=== PATIENT | female | born 1935 | race Caucasian/White ===

== ENCOUNTER 2019-04-10 10:08 | Inpatient (IN) | payer MEDICARE, OTHER ==
[2019-04-10] MEDS ORDERED: IPRATROPIUM/ALBUTEROL SULFATE 3 ML AMPUL.NEB NEB ONE ×2 (10:21→10:31)
[2019-04-10] MEDS ORDERED: ASPIRIN 81 MG CHEW TAB PO ONE (10:28)
[2019-04-10 10:33] LABS: BASOPHILS % 0.4 % (0.0-1.5); NEUTROPHILS # 7.3 # k/uL (1.4-7.7)
[2019-04-10 10:47] LABS: eGFR (Non-African) > 60
--- NOTE | 2019-04-10 11:00 | Diagnostic Imaging Report ---
PATIENT MR#: [id number] PATIENT PATIENT NAME: SAUD FINCH DATE OF : 1935 REFERRING PHYSICIAN: Kev Fulton EXAM DATE: 04/10/2019 ACCESSION NUMBER: [id number] EXAM DESCRIPTION: CHEST 1VIEW EXAMINATION: Portable chest AP COMPARISON: None provided. HISTORY: ORDER STATES CHEST PRESSURE, DIFF BREATHING PT STATES CHEST HURTING, SOB FOR X3-4 DAYS, HX PACEMAKER X8 YRS FINDINGS: Heart is enlarged. Mild pulmonary vascular congestion and small bilateral pleural effusions. No pneum othorax. Single lead pacemaker noted. IMPRESSION: Congestive heart failure Read by: Dr. Aaron Smith Transcribed by: Transcribed Date: Electronically signed by: Dr. Aaron Smith Date signed: 04/10/2019 10:59:49 AM
--- NOTE | 2019-04-10 11:04 | ED Physician Documentation ---
Chest Pain - HISTORIAN Historian: patient, other (family) - HPI Stated Complaint: chest pressure - PAST HX Allergies/Adverse Reactions: Allergies Allergy/AdvReac Type Severity Reaction Status Date / Time No Known Allergies Allergy Unverified 04/10/19 10:41 Home Medications: Ambulatory Orders Medication Instructions Recorded Diltiazem HCl [Diltiazem 24Hr ER] 240 mg PO QDAY 04/10/19 Fluticasone/Umeclidin/Vilanter 04/10/19 [Trelegy Ellipta 100-62.5-25] Fluticasone/Umeclidin/Vilanter BID 04/10/19 [Trelegy Ellipta 100-62.5-25] Furosemide 20 mg PO QDAY 04/10/19 Metoprolol Tartrate [Lopressor] 50 mg pe PO BID 04/10/19 NK 04/10/19 Omeprazole 20 mg PO QDAY 04/10/19 Potassium Chloride 10 meq PO QDAY 04/10/19 Pravastatin Sodium [Pravachol] 40 mg PO QDAY 04/10/19 Warfarin Sodium [Coumadin] mg PO 04/10/19 Zolpidem Tartrate [Ambien] 5 mg PO HS 04/10/19 - VITAL SIGNS Vital Signs: Vital Signs Temp Pulse Resp BP Pulse Ox 98.4 F 78 24 142/80 92 04/10/19 10:08 04/10/19 10:59 04/10/19 10:08 04/10/19 10:08 04/10/19 10:59 ED Results Lab/Radiology - Lab Results Lab Results: Lab Results 04/10/19 04/10/19 04/10/19 10:33 10:33 10:33 WBC 9.60 K/ul K/ul (4.00-12.00) RBC 4.09 M/ul M/ul (3.90-5.20) Hgb 12.5 g/dL g/dL (11.5-16.0) Hct 38.0 % % (34.5-46.5) MCV 93.0 fl fl (80.0-100.0) MCH 30.5 pg pg (28.0-34.0) MCHC 32.8 g/dL g/dL (30.0-36.0) RDW 13.5 % % (11.3-14.3) Plt Count 203 K/mm3 K/mm3 (130-400) Neut % (Auto) 76.7 % % (39.0-79.0) Lymph % (Auto) 13.4 % L % (16.0-50.0) [place] % (Auto) 7.4 % % (0.0-11.0) Eos % (Auto) 2.1 % % (0.0-6.8) Baso % (Auto) 0.4 % % (0.0-1.5) Neut # (Auto) 7.3 # k/uL # k/uL (1.4-7.7) Lymph # (Auto) 1.3 # k/uL # k/uL (0.6-4.0) [place] # (Auto) 0.7 # k/uL # k/uL (0.0-0.9) Eos # (Auto) 0.2 # k/uL # k/uL (0.0-0.6) Baso # (Auto) 0.0 # k/uL # k/uL (0.0-0.5) PT 40.7 Seconds H Seconds (8.8-11.9) INR 3.96 H (0.80-1.10) APTT 46.2 Seconds H Seconds (24.7-37.8) Sodium 137 mmol/L mmol/L (137-145) Potassium 4.0 mmol/L mmol/L (3.5-5.1) Chloride 100 mmol/L mmol/L (98-107) Carbon Dioxide 27 mmol/L mmol/L (22-30) Anion Gap 14.0 BUN 12 mg/dL mg/dL (7-17) Creatinine 0.69 mg/dL mg/dL (0.52-1.04) Est GFR ( Amer) > 60 (60 - ) Est GFR (Non-Af Amer) > 60 (60 - ) Glucose 117 mg/dL H mg/dL (74-106) Calcium 9.0 mg/dL mg/dL (8.4-10.2) Total Bilirubin 1.6 mg/dL H mg/dL (0.2-1.3) AST 48 U/L H U/L (15-46) ALT 22 U/L U/L (0-35) Alkaline Phosphatase 109 U/L U/L (38-126) Creatine Kinase 134 U/L U/L (30-135) CK-MB (CK-2) 1.2 ng/mL ng/mL (0.0-5.6) Troponin I < 0.012 ng/mL L ng/mL (0.012-0.034) NT-Pro-B Natriuret Pep 4790.5 pg/mL H pg/mL (15.0-450.0) Total Protein 7.9 g/dL g/dL (6.3-8.2) Albumin 4.3 g/dL g/dL (3.5-5.0) - Orders Orders: ED Orders Category Date Time Status Continuous EKG monitoring Q30M Care 04/10/19 10:29 Active Continuous Pulse Oximetry Q30M Care 04/10/19 10:[address] IV Lock 1T Care 04/10/19 10:29 Active CHEST 1VIEW [RAD] Stat Exams 04/10/19 Completed CBC/PLATELET/DIFF Stat Lab 04/10/19 10:33 Completed CKMB Stat Lab 04/10/19 10:33 Completed CMP Stat Lab 04/10/19 10:33 Completed CREATINE KINASE Stat Lab 04/10/19 10:33 Completed NT BNP Stat Lab 04/10/19 10:33 Completed PT-INR Stat Lab 04/10/19 10:33 Completed PTT Stat Lab 04/10/19 10:33 Completed TROPONIN I Stat Lab 04/10/19 10:33 Completed Aspirin [Toña] Med 04/10/19 10:28 Discontinued 324 mg PO NOW ONE Ipratropium/Albuterol Sulfate [Duoneb] Med 04/10/19 10:21 Discontinued 3 ml NEB .STK-MED ONE Ipratropium/Albuterol Sulfate [Duoneb] Med 04/10/19 10:31 Discontinued 3 ml NEB NOW ONE Oxygen Daily Oxygen 04/10/19 10:30 Ordered EKG WITH COMPARISON Stat Ther 04/10/19 10:29 Ordered
--- NOTE | 2019-04-10 12:54 | History and Physical Report ---
History of Present Illnes - History of Present Illness Reason for Visit: dyspnea History of Present Illness: 83yo female who develoed some increse difficulties with breathing for one week. She has had a mild productive cough of yellow phlegm, no blood noted. Has been having some mild chest pain, last for 1 minute or less, no precipitating factor noted. Has had some previous chest pain but has not had any work-up done. Saw Dr Martínez last week and was felt to be doing well. Patient has history of atrial fibrillation, no history of CHF. Patient denies any tachycardia bradycardia syncopal new syncopal episodes. Legs have been swelling some. Has been getting SOB with laying flat or walking across a room. Has been wheezing some. patient does have a history of COPD. Patient states as far she knows it has been doing well. Patient subsequently came to the ED today for evaluation. Patient was noted to be 86 to 88% SaO2 on room air. Patient BNP was elevated. Chest x-ray was consistent with congestive heart failure. Patient was subsequently admitted to the hospital for further care and evaluation. - Past Medical History Cardiac: AFIB. denies: CHF, HTN Pulmonary: COPD Gastrointestinal: Constipation Heme/Onc: denies: Anemia NOS Psych: denies: Anxiety Rheumatologic: denies: Rheumatoid arthritis - Past Surgical History Past Surgical History: Cholecystectomy, Other (pacemaker placement) - Past Family History Mother Family History: (92, old age) Father Family History: CAD, (62yo) Brother 2 Family History: CAD, DM, Brother 3 Family History: ( COPD) Brother 4 Family History: CAD, Sister 1 Family History: (Alcoholic, liver cirrhosis) Sister 2 Family History: Sister 3 Family History: - Past Social History Smoke: Quit (3o years ago) Alcohol: None Drugs: None Lives: Friends Domestic Violence: Negative - Health Maintenance Health Maintenance: Influenza Vaccine, Pneumococcal Vaccine Influenza Vaccine: Current for this Influenza Season Pneumonia Vaccine: Yes - Unable to Obtain History Unable to Obtain: No Review of Systems - Review of Systems Constitutional: negative: Fever, Chills Eyes: negative: pain, vision change ENT: negative: Ear Pain, Ear Discharge, Nose Pain, Nose Discharge, Nose Congestion Respiratory: Cough, Shortness of Breath, SOB with Excertion, Sputum, Wheezing. negative: Hemoptysis, Pleuritic Pain Cardiovascular: Chest Pain, Orthopnea, Edema. negative: Palpitations, Paroxysmal Noc. Dyspnea, Light Headedness Gastrointestinal: Nausea, Diarrhea, Constipation. negative: Vomiting, Melena, Hematochezia Genitourinary: Dysuria, Frequency (improved) Musculoskeletal: Back Pain. negative: Neck Pain, Shoulder Pain Skin: negative: Rash Neurological: negative: Numbness, Change in Speech, Seizures - Medications/Allergies Allergies/Adverse Reactions: Allergies Allergy/AdvReac Type Severity Reaction Status Date / Time No Known Allergies Allergy Unverified 04/10/19 10:41 Home Medications: Home Medications Diltiazem HCl [Diltiazem 24Hr ER] 240 mg PO QDAY 04/10/19 Fluticasone/Umeclidin/Vilanter [Trelegy Ellipta 100-62.5-25] BID 04/10/19 Furosemide 20 mg PO QDAY 04/10/19 Metoprolol Tartrate [Lopressor] 50 mg pe PO BID 04/10/19 Omeprazole 20 mg PO QDAY 04/10/19 Potassium Chloride 10 meq PO QDAY 04/10/19 Pravastatin Sodium [Pravachol] 40 mg PO QDAY 04/10/19 Warfarin Sodium [Coumadin] 7.5 mg PO [id number] 04/10/19 Warfarin Sodium [Coumadin] 10 mg PO M1800 04/10/19 Zolpidem Tartrate [Ambien] 5 mg PO HS 04/10/19 Current Inpatient Medications: Current Inpatient Medications Diltiazem HCl (Cardizem Cd) 240 mg PO QDAY [facility] Stop: 05/11/19 08:59 Furosemide (Lasix) 40 mg IVP 714 KERI Stop: 05/10/19 13:59 Metoprolol Tartrate (Lopressor) mg PO BID KERI Stop: 05/10/19 20:59 Miscellaneous (Pravastatin Sodium [Pravachol]) 40 mg PO QDAY KERI Stop: 05/11/19 08:59 Miscellaneous (Warfarin Sodium [Coumadin]) 7.5 mg PO [id number] [facility] Stop: 05/11/19 17:59 Pantoprazole Sodium (Protonix) 40 mg PO 0700 KERI Stop: 05/11/19 06:59 Potassium Chloride (Klor-Con 10) 10 meq PO QDAY [facility] Stop: 05/11/19 08:59 Warfarin Sodium (Coumadin) 10 mg PO M1800 [facility] Stop: 05/13/19 17:59 Zolpidem Tartrate (Ambien) 5 mg PO HS [facility] Stop: 05/10/19 20:59 Exam - Exam Vital Signs: Vital Signs (72 hours) 04/10/19 04/10/19 04/10/19 10:08 10:10 10:29 Temperature 98.4 F Pulse Rate 74 Pulse Rate [ 80 Pulse ox] Respiratory 24 Rate Blood Pressure 142/80 [Left Arm] O2 Sat by Pulse 88 L 94 92 Oximetry 04/10/19 10:59 Temperature Pulse Rate 78 Pulse Rate [ Pulse ox] Respiratory Rate Blood Pressure [Left Arm] O2 Sat by Pulse 92 Oximetry General: Alert, Oriented to Person, Cooperative, No acute distress. No: Oriented to Place, Oriented to Time HEENT: Atraumatic, PERRLA, EOMI, Mouth Mucous membr. moist/[place], Nose Mucous membr. moist/[place] Neck: Normal Range of Motion. No: Lymphadenopathy Carotids: WNL Thyroid: WNL Lungs: Clear to auscultation, Normal air movement, Speaks full Sentences Cardiovascular: Normal S1, Normal S2, No murmurs, Irregularly Irregular Abdomen: Normal bowel sounds, Soft, No tenderness, No hepatospenomegaly, No m asses Integumentary: Normal, [place], Warm, Dry Extremities: No clubbing, No cyanosis, No edema, Normal pulses, No tenderness/swelling Neurological: Normal gait, Normal speech, Strength Equal Bilat, Normal tone, Sensation intact, Cranial nerves 3-12 NL, Reflexes 2+ Psych/Mental Status: Mental status NL, Mood NL, Appropriate Affect, Other (some cognitive impairment). No: Intact Judgment - Laboratory Results Laboratory Results: Laboratory Results 04/10/19 04/10/19 04/10/19 10:33 10:33 10:33 WBC 9.60 RBC 4.09 Hgb 12.5 Hct 38.0 MCV 93.0 MCH 30.5 MCHC 32.8 RDW 13.5 Plt Count 203 Neut % (Auto) 76.7 Lymph % (Auto) 13.4 L [place] % (Auto) 7.4 Eos % (Auto) 2.1 Baso % (Auto) 0.4 Neut # (Auto) 7.3 Lymph # (Auto) 1.3 [place] # (Auto) 0.7 Eos # (Auto) 0.2 Baso # (Auto) 0.0 PT 40.7 H INR 3.96 H APTT 46.2 H Sodium 137 Potassium 4.0 Chloride 100 Carbon Dioxide 27 Anion Gap 14.0 BUN 12 Creatinine 0.69 Est GFR ( Amer) > 60 Est GFR (Non-Af Amer) > 60 Glucose 117 H Calcium 9.0 Total Bilirubin 1.6 H AST 48 H ALT 22 Alkaline Phosphatase 109 Creatine Kinase 134 CK-MB (CK-2) 1.2 Troponin I < 0.012 L NT-Pro-B Natriuret Pep 4790.5 H Total Protein 7.9 Albumin 4.3 Assessment/Plan - Assessment/Plan (1) CHF (congestive heart failure) Status: Acute Current Visit: Yes Plan: Patient will be started on IV Lasix patient electrolyte will be monitored. Patient weight will be monitored daily. Will plan an echocardiogram in the future. (2) COPD (chronic obstructive pulmonary disease) Status: Chronic Current Visit: Yes Assessment: Patient will be continued on present home medication. (3) Atrial fibrillation Status: Chronic Current Visit: Yes Assessment: We will continue anticoagulation therapy with warfarin. Patient INR is superior therapeutic. Coumadin will be held today and will recheck INR in the a.m. (4) Dementia Status: Chronic Current Visit: Yes Qualifiers: Alzheimer's disease onset: late-onset Dementia behavioral disturbance: without behavioral disturbance VTE Assessment - RISK FACTOR SCORE VTE RISK FACTOR SCORES: AGE OVER 60 YEARS, ANTICIPATED BED CONFINEMENT OR IMMOBILIZATION > 24 HOURS, CONGESTIVE HEART FAILURE OR MYOCARDIAL INFARCTION - RISK VTE HIGH RISK: SCORE OF 3-4 (RISK PROXIMAL DVT 4-8%) PROPHYLAXIS NEEDED (patient is currently on anticoagulation therapy with warfarin.)
[2019-04-10 13:21] VITALS: BMI 27.4
[2019-04-10] MEDS: FUROSEMIDE 40 MG/4 ML VIAL IVP SCH (14:16)
[2019-04-10] MEDS ORDERED: WARFARIN SODIUM 7.5 MG PO SCH (18:00)
[2019-04-10] MEDS: WARFARIN SODIUM 2.5 MG TABLET PO SCH (18:48)
[2019-04-10] MEDS: METOPROLOL TARTRATE 50 MG TABLET PO SCH (20:25)
[2019-04-10] MEDS: ZOLPIDEM TARTRATE 5 MG TABLET PO SCH (20:25)
[2019-04-10] MEDS: FLUTICASONE/SALMETEROL 250-50 INHALER IH SCH (20:26)
[2019-04-10] MEDS: SODIUM CHLORIDE 0.9 % (FLUSH) 10 ML DISP.SYRIN IV SCH (20:29)
[2019-04-11] MEDS: FUROSEMIDE 40 MG/4 ML VIAL IVP SCH ×2 (05:43→13:59)
[2019-04-11] MEDS: PANTOPRAZOLE SODIUM 40 MG TABLET.DR PO SCH (05:49)
[2019-04-11] MEDS: SODIUM CHLORIDE 0.9 % (FLUSH) 10 ML DISP.SYRIN IV SCH ×2 (08:26→21:43)
[2019-04-11] MEDS: FLUTICASONE/SALMETEROL 250-50 INHALER IH SCH ×2 (08:28→21:46)
[2019-04-11] MEDS: METOPROLOL TARTRATE 50 MG TABLET PO SCH ×2 (08:30→21:43)
[2019-04-11] MEDS: POTASSIUM CHLORIDE 10 MEQ TABLET.ER PO SCH (08:30)
[2019-04-11] MEDS ORDERED: ENOXAPARIN SODIUM 30 MG/0.3 ML DISP.SYRIN SQ SCH (09:00)
[2019-04-11 10:02] LABS: BASOPHILS % 0.3 % (0.0-1.5); NEUTROPHILS # 6.5 # k/uL (1.4-7.7)
[2019-04-11 10:12] LABS: eGFR (Non-African) > 60
--- NOTE | 2019-04-11 11:19 | Inpatient Progress Note ---
Subjective - Required Recertification Statement I anticipate X number of days because-include discharge plan: 1 day - Review of Systems Events since last encounter: Patient stated she is doing better today. Patient stated her breathing is better. Patient has been ambulating to the bathroom and only minimal dyspnea. Patient denies any chest pain or chest pressure. Pedel edema appeared to be improved. Pulmonary: Dyspnea (improved), Cough (improved) Cardiovascular: Denies: Chest Pain, Palpitations, Orthopnea Gastrointestinal: Denies: Nausea, Vomiting, Abdominal Pain Objective - Exam Vitals and I&O: Vital Signs Temp 98.3 F 04/11/19 08:42 Pulse 101 H 04/11/19 09:50 Resp 20 04/11/19 09:50 BP 128/77 04/11/19 08:42 Pulse Ox 96 04/11/19 08:42 Intake & Output 04/10/19 04/10/19 04/11/19 11:59 23:59 11:59 Intake Total 696 314 Output Total 1600 2100 Balance -904 -1786 Weight 80.739 kg 84.368 kg 82.554 kg Intake: IV 6 14 Right Antecubital 6 14 Oral 690 300 Output: Urine 1600 2100 Other: Voiding Method Toilet Toilet # Voids 5 # Bowel Movements 0 0 General: Alert, Oriented to Person, Oriented to Place, Cooperative. No: Oriented to Time Neck: Supple, No thyromegaly, Other (mild JVD noted). No: No JVD Lungs: Rales (right base, improved) Cardiovascular: Normal S1, Normal S2, No murmurs, Irregularly Irregular, Tachycardia (104) Abdomen: Normal bowel sounds, Soft, No tenderness Extremities: No edema Skin: Normal, [place], Warm, Dry Psych/Mental Status: Mood NL, Appropriate Affect - Results Results: Laboratory Results WBC 8.70 K/ul (4.00-12.00) 04/11/19 08:00 RBC 3.66 M/ul (3.90-5.20) L 04/11/19 08:00 Hgb 11.1 g/dL (11.5-16.0) L 04/11/19 08:00 Hct 33.9 % (34.5-46.5) L 04/11/19 08:00 MCV 93.0 fl (80.0-100.0) 04/11/19 08:00 MCH 30.3 pg (28.0-34.0) 04/11/19 08:00 MCHC 32.6 g/dL (30.0-36.0) 04/11/19 08:00 RDW 13.0 % (11.3-14.3) 04/11/19 08:00 Plt Count 171 K/mm3 (130-400) 04/11/19 08:00 Neut % (Auto) 73.9 % (39.0-79.0) 04/11/19 08:00 Lymph % (Auto) 15.2 % (16.0-50.0) L 04/11/19 08:00 [place] % (Auto) 8.5 % (0.0-11.0) 04/11/19 08:00 Eos % (Auto) 2.1 % (0.0-6.8) 04/11/19 08:00 Baso % (Auto) 0.3 % (0.0-1.5) 04/11/19 08:00 Neut # (Auto) 6.5 # k/uL (1.4-7.7) 04/11/19 08:00 Lymph # (Auto) 1.3 # k/uL (0.6-4.0) 04/11/19 08:00 [place] # (Auto) 0.7 # k/uL (0.0-0.9) 04/11/19 08:00 Eos # (Auto) 0.2 # k/uL (0.0-0.6) 04/11/19 08:00 Baso # (Auto) 0.0 # k/uL (0.0-0.5) 04/11/19 08:00 PT 35.4 Seconds (8.8-11.9) H 04/11/19 08:00 INR 3.44 (0.80-1.10) H 04/11/19 08:00 APTT 46.2 Seconds (24.7-37.8) H 04/10/19 10:33 Sodium 135 mmol/L (137-145) L 04/11/19 08:00 Potassium 3.7 mmol/L (3.5-5.1) 04/11/19 08:00 Chloride 102 mmol/L (98-107) 04/11/19 08:00 Carbon Dioxide 26 mmol/L (22-30) 04/11/19 08:00 Anion Gap 10.7 04/11/19 08:00 BUN 13 mg/dL (7-17) 04/11/19 08:00 Creatinine 0.59 mg/dL (0.52-1.04) 04/11/19 08:00 Estimated Creat Clear 106 04/11/19 08:00 Est GFR ( Amer) > 60 (60-) 04/11/19 08:00 Est GFR (Non-Af Amer) > 60 (60-) 04/11/19 08:00 Glucose 90 mg/dL (74-106) 04/11/19 08:00 Calcium 8.6 mg/dL (8.4-10.2) 04/11/19 08:00 Total Bilirubin 1.2 mg/dL (0.2-1.3) 04/11/19 08:00 AST 31 U/L (15-46) 04/11/19 08:00 ALT 19 U/L (0-35) 04/11/19 08:00 Alkaline Phosphatase 84 U/L (38-126) 04/11/19 08:00 Creatine Kinase 134 U/L (30-135) 04/10/19 10:33 CK-MB (CK-2) 1.2 ng/mL (0.0-5.6) 04/10/19 10:33 Troponin I < 0.012 ng/mL (0.012-0.034) L 04/11/19 08:00 NT-Pro-B Natriuret Pep 4790.5 pg/mL (15.0-450.0) H 04/10/19 10:33 Total Protein 6.4 g/dL (6.3-8.2) 04/11/19 08:00 Albumin 3.6 g/dL (3.5-5.0) 04/11/19 08:00 Assessment/Plan - Assessment/Plan (1) CHF (congestive heart failure) Status: Acute Current Visit: Yes Qualifiers: Heart failure type: systolic Assessment: appears improved Plan: Will recheck BNP and CXR in AM (2) COPD (chronic obstructive pulmonary disease) Status: Chronic Current Visit: Yes Assessment: Stable (3) Atrial fibrillation Status: Chronic Current Visit: Yes Qualifiers: Atrial fibrillation type: longstanding persistent Qualified Code(s): I48.11 - Longstanding persistent atrial fibrillation Assessment: INR stilll elevated, hold warfarin Plan: Will increase diltiazem to help control rate better, warfarin will be held again today because of continuing elevated INR. (4) Dementia Status: Chronic Current Visit: Yes Qualifiers: Alzheimer's disease onset: late-onset Dementia behavioral disturbance: without behavioral disturbance Assessment: stable
[2019-04-11] MEDS: MAGNESIUM OXIDE 400 MG TABLET PO ONE ×2 (19:28→19:30)
[2019-04-11] MEDS: ACETAMINOPHEN 500 MG TABLET PO ONE ×2 (19:28→19:30)
[2019-04-11] MEDS: ZOLPIDEM TARTRATE 5 MG TABLET PO SCH (21:43)
[2019-04-11] MEDS: PRAVASTATIN SODIUM 20 MG TABLET PO SCH (21:43)
[2019-04-12] MEDS: FUROSEMIDE 40 MG/4 ML VIAL IVP SCH ×2 (05:54→14:03)
[2019-04-12] MEDS: PANTOPRAZOLE SODIUM 40 MG TABLET.DR PO SCH (06:05)
--- NOTE | 2019-04-12 07:29 | Discharge Summary ---
Discharge Summary - Discharge [facility] Admission Date: 04/10/19 (Acute) Discharge Date: 04/12/19 (Home) Discharge To: Home History of Present Illness: 83yo female who develoed some increse difficulties with breathing for one week. She has had a mild productive cough of yellow phlegm, no blood noted. Has been having some mild chest pain, last for 1 minute or less, no precipitating factor noted. Has had some previous chest pain but has not had any work-up done. Saw Dr Martínez last week and was felt to be doing well. Patient has history of atrial fibrillation, no history of CHF. Patient denies any tachycardia bradycardia syncopal new syncopal episodes. Legs have been swelling some. Has been getting SOB with laying flat or walking across a room. Has been wheezing some. patient does have a history of COPD. Patient states as far she knows it has been doing well. Patient subsequently came to the ED today for evaluation. Patient was noted to be 86 to 88% SaO2 on room air. Patient BNP was elevated. Chest x-ray was consistent with congestive heart failure. Patient was subsequently admitted to the hospital for further care and evaluation. Condition at Discharge: Stable Home Medications: Ambulatory Orders Medication Instructions Recorded Fluticasone/Umeclidin/Vilanter BID 04/10/19 [Trelegy Ellipta 100-62.5-25] Furosemide 20 mg PO QDAY 04/10/19 Metoprolol Tartrate [Lopressor] 50 mg pe PO BID 04/10/19 Omeprazole 20 mg PO QDAY 04/10/19 Potassium Chloride 10 meq PO QDAY 04/10/19 Pravastatin Sodium [Pravachol] 40 mg PO QDAY 04/10/19 Warfarin Sodium [Coumadin] 7.5 mg PO [id number] 04/10/19 Warfarin Sodium [Coumadin] 10 mg PO M1800 04/10/19 Zolpidem Tartrate [Ambien] 5 mg PO HS 04/10/19 dilTIAZem HCL [Cardizem CD] 360 mg PO DAILY #60 cap.er.24h 04/11/19 Allergies/Adverse Reactions: Allergies Allergy/AdvReac Type Severity Reaction Status Date / Time No Known Allergies Allergy Unverified 04/10/19 10:41 Patient Problems: Current Active Problems Problem Status Onset CHF (congestive heart failure) Acute Atrial fibrillation Chronic COPD (chronic obstructive pulmonary disease) Chronic Dementia Chronic Discharge Summary: Patient did well during her hospitalization. Patient was started on IV Lasix for diuresis for her congestive heart failure. At the time to discharge patient weight was decreased approximately 2 1/2 kg from admission. Patient stated that she was breathing better. Patient did remain in atrial fibrillation during her hospital stay. Patient was mildly tachycardic and 100-115. Patient diltiazem with increased to 360 mg Q day. That did decrease her pulse rate to the 80-90s. Patient denied any chest pain or chest pressure. On admission patient INR was super therapeutic. Patient warfarin withheld. Coumadin dose was adjusted at the time of dismissal. Patient dementia remain stable without any behavioral issues. COPD remains stable without any adjustment in her medications. At the time of dismissal patient was stable without that she could be managed at an outpatient and was discharged in stable condition. - Final Diagnosis (1) CHF (congestive heart failure) Problems: improved. Patient will need ECHO done in future (2) COPD (chronic obstructive pulmonary disease) Problems: stable (3) Atrial fibrillation Problems: improved (4) Dementia Problems: stable
--- NOTE | 2019-04-12 07:36 | Diagnostic Imaging Report ---
PATIENT MR#: [id number] PATIENT PATIENT NAME: SAUD FINCH DATE OF : 1935 REFERRING PHYSICIAN: Paulo Lagos EXAM DATE: 04/12/2019 ACCESSION NUMBER: [id number] EXAM DESCRIPTION: CHEST 2VIEW Chest, PA and lateral History: Heart failure Finding: Small bilateral pleural effusions are present. There is no pneumothorax. The heart is enlarg ed. There is calcification in the thoracic aorta. Left subclavian transvenous pacemaker is present. Since April 10 2019, no significant change has occurred. Impression: Cardiomegaly with congestion. Atherosclerosis. Small pleural effusions. Read by: Dr. Samuel Ji Transcribed by: Transcribed Date: Electronically signed by: Dr. Samuel Ji Date signed: 04/12/2019 7:35:51 AM
[2019-04-12] MEDS: SODIUM CHLORIDE 0.9 % (FLUSH) 10 ML DISP.SYRIN IV SCH ×2 (08:50→20:16)
[2019-04-12] MEDS: FLUTICASONE/SALMETEROL 250-50 INHALER IH SCH ×2 (08:50→20:13)
[2019-04-12] MEDS: POTASSIUM CHLORIDE 10 MEQ TABLET.ER PO SCH (08:51)
[2019-04-12] MEDS: METOPROLOL TARTRATE 50 MG TABLET PO SCH ×2 (08:51→20:12)
[2019-04-12 10:56] LABS: eGFR (Non-African) > 60
[2019-04-12] MEDS: WARFARIN SODIUM 2.5 MG TABLET PO SCH (17:28)
[2019-04-12] MEDS: ZOLPIDEM TARTRATE 5 MG TABLET PO SCH (20:12)
[2019-04-12] MEDS: PRAVASTATIN SODIUM 20 MG TABLET PO SCH (20:13)
[2019-04-13] MEDS: FUROSEMIDE 40 MG/4 ML VIAL IVP SCH (05:58)
[2019-04-13] MEDS: PANTOPRAZOLE SODIUM 40 MG TABLET.DR PO SCH (05:58)
--- NOTE | 2019-04-13 07:34 | Inpatient Progress Note ---
Subjective - Required Recertification Statement I anticipate X number of days because-include discharge plan: 1 day - Review of Systems Events since last encounter: Patient states that she is doing well, denies any SOB, chest pain/pressure. Chronic medical problems appear to be stable. Atrial fib rate is better controlled. Pulmonary: Denies: Dyspnea, Cough, Pleuritic Chest Pain Cardiovascular: Denies: Chest Pain, Palpitations, Orthopnea, Edema Gastrointestinal: Denies: Nausea, Vomiting, Diarrhea Objective - Exam Vitals and I&O: Vital Signs Temp 98.3 F 04/13/19 06:00 Pulse 92 H 04/13/19 06:00 Resp 20 04/13/19 06:00 BP 130/75 04/13/19 06:00 Pulse Ox 96 04/13/19 06:00 Intake & Output 04/12/19 04/12/19 04/13/19 11:59 23:59 11:59 Intake Total 240 165 154 Output Total 1100 1195 200 Balance -860 -1030 -46 Weight 78.925 kg 78.925 kg Intake: IV 20 15 14 Right Antecubital 20 15 14 Oral 220 150 140 Output: Urine 1100 1195 200 Other: Voiding Method Toilet Toilet Toilet # Voids 3 General: Alert, Oriented to Person, Oriented to Place, Cooperative. No: Oriented to Time Neck: Supple, No JVD Lungs: Clear to auscultation, Normal air movement, Speaks full Sentences. No: Wheezes, Rales, Rhonchi Cardiovascular: Normal S1, Normal S2, No murmurs, Irregularly Irregular Abdomen: Normal bowel sounds, Soft, No tenderness Extremities: No edema Psych/Mental Status: Mood NL, Appropriate Affect. No: Intact Judgment - Results Results: Laboratory Results WBC 8.70 K/ul (4.00-12.00) 04/11/19 08:00 RBC 3.66 M/ul (3.90-5.20) L 04/11/19 08:00 Hgb 11.1 g/dL (11.5-16.0) L 04/11/19 08:00 Hct 33.9 % (34.5-46.5) L 04/11/19 08:00 MCV 93.0 fl (80.0-100.0) 04/11/19 08:00 MCH 30.3 pg (28.0-34.0) 04/11/19 08:00 MCHC 32.6 g/dL (30.0-36.0) 04/11/19 08:00 RDW 13.0 % (11.3-14.3) 04/11/19 08:00 Plt Count 171 K/mm3 (130-400) 04/11/19 08:00 Neut % (Auto) 73.9 % (39.0-79.0) 04/11/19 08:00 Lymph % (Auto) 15.2 % (16.0-50.0) L 04/11/19 08:00 [place] % (Auto) 8.5 % (0.0-11.0) 04/11/19 08:00 Eos % (Auto) 2.1 % (0.0-6.8) 04/11/19 08:00 Baso % (Auto) 0.3 % (0.0-1.5) 04/11/19 08:00 Neut # (Auto) 6.5 # k/uL (1.4-7.7) 04/11/19 08:00 Lymph # (Auto) 1.3 # k/uL (0.6-4.0) 04/11/19 08:00 [place] # (Auto) 0.7 # k/uL (0.0-0.9) 04/11/19 08:00 Eos # (Auto) 0.2 # k/uL (0.0-0.6) 04/11/19 08:00 Baso # (Auto) 0.0 # k/uL (0.0-0.5) 04/11/19 08:00 PT 30.1 Seconds (8.8-11.9) H 04/12/19 06:00 INR 2.92 (0.80-1.10) H 04/12/19 06:00 APTT 46.2 Seconds (24.7-37.8) H 04/10/19 10:33 Sodium 139 mmol/L (137-145) 04/12/19 06:00 Potassium 3.6 mmol/L (3.5-5.1) 04/12/19 06:00 Chloride 97 mmol/L (98-107) L 04/12/19 06:00 Carbon Dioxide 31 mmol/L (22-30) H 04/12/19 06:00 Anion Gap 14.6 04/12/19 06:00 BUN 13 mg/dL (7-17) 04/12/19 06:00 Creatinine 0.69 mg/dL (0.52-1.04) 04/12/19 06:00 Estimated Creat Clear 87 04/12/19 06:00 Est GFR ( Amer) > 60 (60-) 04/12/19 06:00 Est GFR (Non-Af Amer) > 60 (60-) 04/12/19 06:00 Glucose 94 mg/dL (74-106) 04/12/19 06:00 Calcium 9.1 mg/dL (8.4-10.2) 04/12/19 06:00 Total Bilirubin 1.2 mg/dL (0.2-1.3) 04/11/19 08:00 AST 31 U/L (15-46) 04/11/19 08:00 ALT 19 U/L (0-35) 04/11/19 08:00 Alkaline Phosphatase 84 U/L (38-126) 04/11/19 08:00 Creatine Kinase 134 U/L (30-135) 04/10/19 10:33 CK-MB (CK-2) 1.2 ng/mL (0.0-5.6) 04/10/19 10:33 Troponin I < 0.012 ng/mL (0.012-0.034) L 04/11/19 08:00 NT-Pro-B Natriuret Pep 1584.0 pg/mL (15.0-450.0) H 04/12/19 06:00 Total Protein 6.4 g/dL (6.3-8.2) 04/11/19 08:00 Albumin 3.6 g/dL (3.5-5.0) 04/11/19 08:00 Assessment/Plan - Assessment/Plan (1) CHF (congestive heart failure) Status: Acute Current Visit: Yes Qualifiers: Heart failure type: systolic Assessment: Patient appears improved but when she ambulates on RA drops to mid 80s. Her COPD may be to the point that she may require home oxygen. (2) COPD (chronic obstructive pulmonary disease) Status: Chronic Current Visit: Yes Assessment: stable (3) Atrial fibrillation Status: Chronic Current Visit: Yes Qualifiers: Atrial fibrillation type: longstanding persistent Qualified Code(s): I48.11 - Longstanding persistent atrial fibrillation Assessment: improved rate (4) Dementia Status: Chronic Current Visit: Yes Qualifiers: Alzheimer's disease onset: late-onset Dementia behavioral disturbance: without behavioral disturbance Assessment: stable
[2019-04-13 07:59] VITALS: BP 110/70
[2019-04-13] MEDS: FLUTICASONE/SALMETEROL 250-50 INHALER IH SCH (08:16)
[2019-04-13] MEDS: POTASSIUM CHLORIDE 10 MEQ TABLET.ER PO SCH (08:16)
[2019-04-13] MEDS: METOPROLOL TARTRATE 50 MG TABLET PO SCH (08:16)
[2019-04-13] MEDS ORDERED: WARFARIN SODIUM 5 MG TABLET PO SCH (18:00)
== END 2019-04-13 11:45 | disposition home or self-care (01) | DRG 292 ==
LOC: ED 10:08 → SOUTH 12:23
PROVIDERS: ADMIT Family Medicine; ATTEND Family Medicine
DX: I50.21 Acute systolic (congestive) heart failure (principal); I48.11 Longstanding persistent atrial fibrillation; J44.9 Chronic obstructive pulmonary disease, unspecified; G30.1 Alzheimer's disease with late onset; F02.80 Dementia in other diseases classified elsewhere, unspecified severity, without behavioral disturbance, psychotic disturbance, mood disturbance, and anxiety; Z95.0 Presence of cardiac pacemaker; Z90.49 Acquired absence of other specified parts of digestive tract; Z87.891 Personal history of nicotine dependence; Z79.899 Other long term (current) drug therapy; Z79.01 Long term (current) use of anticoagulants; Z79.51 Long term (current) use of inhaled steroids
CPT/HCPCS: 36415; 71045; 71046; 80048; 80053; 82550; 82553; 83880; 84484; 85025; 85610; 85730; 93005; 94761; 99221; 99232; 99238; J1940; S1016

== ENCOUNTER 2019-04-27 13:13 | Inpatient (IN) | payer OTHER ==
--- NOTE | 2019-04-27 13:21 | ED Physician Documentation ---
General Adult - HISTORIAN Historian: patient - HPI Stated Complaint: shortness of breath Chief Complaint: Dyspnea Onset: days ago (2) Timing: still present Further Comments: yes (She reports she was admitted that she was in the hospital until Sat (2 days ago) for CHF. She had shortness of air at this time. She has stated in interview both yes the dyspnea at that time did improve an no the dyspnea was the same. No fever. She also notes that she has been having "some weird feelings at night when I lay down like a chest (indicates mid chest) to belly" lasting "a few seconds maybe" and then she feels like she might pass out then it goes away. NO current chest pain. She denies a fever) - ROS CONST: recent illness CVS/RESP: shortness of breath, cough NEURO/PSYCH: headache - PAST HX Past History: CHF, hypertension Immunizations: UTD Allergies/Adverse Reactions: Allergies Allergy/AdvReac Type Severity Reaction Status Date / Time No Known Allergies Allergy Verified 04/27/19 13:58 Home Medications: Ambulatory Orders Medication Instructions Recorded Fluticasone/Umeclidin/Vilanter BID 04/10/19 [Trelegy Ellipta 100-62.5-25] Furosemide 20 mg PO QDAY 04/10/19 Metoprolol Tartrate [Lopressor] 50 mg pe PO BID 04/10/19 Omeprazole 20 mg PO QDAY 04/10/19 Potassium Chloride 10 meq PO QDAY 04/10/19 Pravastatin Sodium [Pravachol] 40 mg PO QDAY 04/10/19 Warfarin Sodium [Coumadin] 7.5 mg PO [id number] 04/10/19 Warfarin Sodium [Coumadin] 10 mg PO M1800 04/10/19 Zolpidem Tartrate [Ambien] 5 mg PO HS 04/10/19 dilTIAZem HCL [Cardizem CD] 360 mg PO DAILY #60 cap.er.24h 04/11/19 - SOCIAL HX Smoking History: non-smoker Alcohol Use: none Drug Use: none - FAMILY HX Family History: No - VITAL SIGNS Vital Signs: Vital Signs Temp Pulse Resp BP Pulse Ox 110/70 04/13/19 10:47 - REVIEWED ASSESSMENTS Nursing Assessment Reviewed: Yes Vitals Reviewed: Yes Progress - Progress Progress: 1450: discussed case with Dr Lagos. Admit inpt pneumonia and CHF DG General Adult Physical Exam - PHYSICAL EXAM GENERAL APPEARANCE: no distress EENT: eye inspection normal, no signs of dehydration NECK: normal inspection RESPIRATORY: no resp distress, chest non-tender, rhonchi CVS: reg rate & rhythm, heart sounds normal ABDOMEN: soft, normal bowel sounds, no distension BACK: normal inspection, no CVA tenderness SKIN: warm/dry EXTREMITIES: non-tender, normal range of motion, no evidence of injury, edema (2+ pitting lower legs bilateral ) NEURO: oriented X3 Discharge Clincal Impression: Pneumonia Qualifiers: Pneumonia type: due to unspecified organism Laterality: right Lung location: l ower lobe of lung Qualified Code(s): J18.9 - Pneumonia, unspecified organism Condition: Fair Disposition: 09 ADMITTED INPATIENT Decision to Admit: [id number] Date of Decison to Admit: 04/27/19 Decision Time: 14:45
[2019-04-27 13:57] LABS: BASOPHILS % 0.7 % (0.0-1.5); NEUTROPHILS # 5.8 # k/uL (1.4-7.7)
[2019-04-27 14:08] LABS: eGFR (Non-African) > 60
--- NOTE | 2019-04-27 14:10 | Diagnostic Imaging Report ---
PATIENT MR#: [id number] PATIENT PATIENT NAME: SAUD FINCH DATE OF : 1935 REFERRING PHYSICIAN: Alia Verdin EXAM DATE: 04/27/2019 ACCESSION NUMBER: [id number] EXAM DESCRIPTION: CHEST 1VIEW Exam: AP portable chest. History: Shortness of breath. The examination is compared to study April 12, 2019. A cardiac pacemaker is in position over the left hemithorax with lead in the anticipated right ventri trung. Perihilar and right basilar infiltrates are noted with bilateral pleural effusions. Heart size is normal with athe rosclerotic plaques seen in the aorta. No other bony abnormalities are identified. Impression: Perihilar and right basilar infiltrates with bilateral pleural effusions. Read by: Dr. Darryl Moreno Transcribed by: Transcribed Date: Electronically signed by: Dr. Darryl Moreno Date signed: 04/27/2019 2:09:40 PM
[2019-04-27] MEDS ORDERED: IPRATROPIUM/ALBUTEROL SULFATE 3 ML AMPUL.NEB NEB ONE (14:20)
[2019-04-27] MEDS ORDERED: FUROSEMIDE 40 MG/4 ML VIAL IVP ONE (14:20)
[2019-04-27] MEDS ORDERED: cefTRIAXone SODIUM 1 GM in 0.9 % SODIUM CHLORIDE 50 ML IV ONE (15:11)
[2019-04-27] MEDS ORDERED: AZITHROMYCIN 500 MG VIAL IV ONE (16:19)
--- NOTE | 2019-04-27 16:35 | History and Physical Report ---
History of Present Illnes - History of Present Illness Reason for Visit: dyspnea History of Present Illness: 83-year-old female with a 3 day history of increasing shortness of breath. Has been coughing some that has been productive, no blood noted. No chest pain or pressure noted. patient denies any fever or chills. Patient stated she has been having some intermittent wheezing. Patient subsequently came to the ED for evaluation. In the emergency room patient was noted to have a pulse ox of 85% on room air. Patient denied any chest pain or chest pressure. Chest x-ray was done and was consistent with a possible early pneumonia. Patient was subsequently admitted to the hospital for further care and evaluation. Patient was hospitalized for CHF on APR 13. Patient has been reported to have seen her primary care physician and was in the middle of further evaluation. - Past Medical History Cardiac: AFIB. denies: CHF, HTN Pulmonary: COPD Gastrointestinal: Constipation - Past Surgical History Past Surgical History: Cholecystectomy, Other (pacemaker placement) - Past Social History Smoke: Quit (3o years ago) Alcohol: None Drugs: None Lives: Friends Domestic Violence: Negative - Health Maintenance Health Maintenance: Influenza Vaccine, Pneumococcal Vaccine Influenza Vaccine: Current for this Influenza Season Pneumonia Vaccine: No Resuscitation Status: Resusciation Status Resuscitation Status Full Code Review of Systems - Review of Systems Constitutional: Fever. negative: Chills Eyes: negative: pain, vision change, conjunctivae inflammation ENT: negative: Ear Pain, Ear Discharge, Nose Pain, Nose Discharge, Nose Congestion, Throat Pain Respiratory: Cough, Shortness of Breath, SOB with Excertion, Sputum, Wheezing. negative: Hemoptysis Cardiovascular: negative: Chest Pain, Palpitations, Orthopnea, Paroxysmal Noc. Dyspnea Gastrointestinal: negative: Nausea, Vomiting, Abdominal Pain, Diarrhea, Constipation, Melena, Hematochezia Genitourinary: negative: Dysuria, Frequency, Incontinence, Hematuria, Retention Musculoskeletal: Back Pain. negative: Neck Pain, Shoulder Pain, Arm Pain Skin: negative: Rash Neurological: Weakness, Confusion (at baseline). negative: Numbness, Incoordination - Medications/Allergies Allergies/Adverse Reactions: Allergies Allergy/AdvReac Type Severity Reaction Status Date / Time No Known Allergies Allergy Verified 04/27/19 13:58 Current Inpatient Medications: Current Inpatient Medications Albuterol/Ipratropium (Duoneb) 3 ml NEB Q4 KERI Stop: 05/27/19 16:59 Atorvastatin Calcium (Lipitor) 40 mg PO HS KERI Stop: 05/27/19 20:59 Azithromycin (Zithromax) 500 mg PO DAILY KERI Stop: 04/29/19 09:01 Diltiazem HCl (Cardizem Cd) 360 mg PO DAILY KERI Stop: 05/28/19 08:59 Furosemide (Lasix) 20 mg IVP Q12 KERI Stop: 05/27/19 20:59 Ceftriaxone Sodium 1 gm/ (Sodium Chloride) 50 mls @ 100 mls/hr IV NOW ONE Stop: 04/27/19 15:40 Ceftriaxone Sodium 500 mg/ (Sodium Chloride) 50 mls @ 100 mls/hr IV DAILY KERI Stop: 05/28/19 08:59 Methylprednisolone Sodium Succinate (Solu-Medrol) 60 mg IVP Q12 KERI Stop: 05/27/19 20:59 Methylprednisolone Sodium Succinate (Solu-Medrol) 60 mg IVP Q12 KERI Stop: 05/27/19 20:59 Metoprolol Tartrate (Lopressor) mg PO BID KERI Stop: 05/27/19 20:59 Miscellaneous (Warfarin Sodium [Coumadin]) 7.5 mg PO [id number] KERI Stop: 05/28/19 17:59 Pantoprazole Sodium (Protonix) 40 mg PO 0700 [facility] Stop: 05/28/19 06:59 Potassium Chloride (Klor-Con 10) 10 meq PO QDAY KERI Stop: 05/27/19 15:59 Warfarin Sodium (Coumadin) 10 mg PO M1800 KERI Stop: 05/27/19 17:59 Zolpidem Tartrate (Ambien) 5 mg PO HS KERI Stop: 05/27/19 20:59 Exam - Exam Vital Signs: Vital Signs (72 hours) 04/27/19 04/27/19 04/27/19 13:19 13:32 15:51 Temperature 98.1 F Pulse Rate 65 Pulse Rate [ Left] Pulse Rate [ 69 61 Pulse ox] Respiratory 22 22 Rate Blood Pressure 138/70 122/71 [Left Arm] O2 Sat by Pulse 87 L 95 Oximetry 04/27/19 04/27/19 16:22 16:24 Temperature 97.4 F L 97.4 F L Pulse Rate Pulse Rate [ 68 68 Left] Pulse Rate [ 90 Pulse ox] Respiratory 20 20 Rate Blood Pressure 130/78 130/78 [Left Arm] O2 Sat by Pulse 90 L 90 L Oximetry General: Alert, Oriented to Person, Oriented to Place, Oriented to Time, Cooperative HEENT: Atraumatic, PERRLA, EOMI, Mouth Mucous membr. moist/[place], Nose Mucous membr. moist/[place] Neck: Normal Range of Motion Carotids: wnl Thyroid: wnl Lungs: Normal air movement, Speaks full Sentences, Rales, Rhonchi Cardiovascular: Regular rate, Normal S1, Normal S2, No murmurs Abdomen: Normal bowel sounds, Soft, No tenderness, No hepatospenomegaly, No masses Integumentary: Normal, [place], Warm, Dry Extremities: No clubbing, No cyanosis, No edema, Normal pulses, No tenderness/swelling Neurological: Normal gait, Normal speech, Strength Equal Bilat, Normal tone, Sensation intact, Cranial nerves 3-12 NL, Reflexes 2+ Psych/Mental Status: Mental status NL, Mood NL, Appropriate Affect, Intact Judgment - Laboratory Results Laboratory Results: Laboratory Results 04/27/19 04/27/19 13:51 13:51 WBC 7.70 RBC 3.98 Hgb 12.2 Hct 35.2 MCV 88.0 MCH 30.6 MCHC 34.6 RDW 13.0 Plt Count 263 Neut % (Auto) 75.0 Lymph % (Auto) 16.8 [place] % (Auto) 4.7 Eos % (Auto) 2.8 Baso % (Auto) 0.7 Neut # (Auto) 5.8 Lymph # (Auto) 1.3 [place] # (Auto) 0.4 Eos # (Auto) 0.2 Baso # (Auto) 0.1 Sodium 141 Potassium 3.8 Chloride 102 Carbon Dioxide 27 Anion Gap 15.8 BUN 15 Creatinine 0.75 Estimated Creat Clear 80 Est GFR ( Amer) > 60 Est GFR (Non-Af Amer) > 60 Glucose 107 H Calcium 8.9 Total Bilirubin 1.1 AST 34 ALT 16 Alkaline Phosphatase 101 Troponin I < 0.012 L NT-Pro-B Natriuret Pep 3914.9 H Total Protein 7.2 Albumin 4.2 Assessment/Plan - Assessment/Plan (1) Pneumonia Status: Acute Current Visit: Yes Qualifiers: Pneumonia type: due to unspecified organism Laterality: right Lung location: lower lobe of lung Qualified Code(s): J18.9 - Pneumonia, unspecified organism Assessment: Patient has been started on ceftriaxone and azithromycin. Blood cultures have been obtained. Patient will be maintained on supplemental oxygen in order to keep her SaO2 greater than 92%. (2) CHF (congestive heart failure) Status: Acute Current Visit: No Qualifiers: Heart failure type: systolic Assessment: Appeared to be stable at this time. patient Lasix will be increased back up to 40 mg PO Q day. (3) Atrial fibrillation Status: Chronic Current Visit: No Qualifiers: Atrial fibrillation type: longstanding persistent Qualified Code(s): I48.11 - Longstanding persistent atrial fibrillation Assessment: Will continue with anticoagulation therapy and continue to monitor patient rate. (4) COPD (chronic obstructive pulmonary disease) Status: Chronic Current Visit: No Assessment: Continue with home medications. (5) Dementia Status: Chronic Current Visit: No Qualifiers: Alzheimer's disease onset: late-onset Dementia behavioral disturbance: without behavioral disturbance Assessment: Continue with home medications. VTE Assessment - RISK FACTOR SCORE VTE RISK FACTOR SCORES: AGE OVER 60 YEARS, ACUTE INFECTION OTHER THEN SEPSIS - RISK VTE MODERATE RISK: SCORE OF 2 (RISK PROXIMAL DVT 2-4%) PROPHYAXIS NEEDED (patient is on Coumadin therapy at this time.)
[2019-04-27] MEDS ORDERED: 0.9 % SODIUM CHLORIDE 50 ML IV ONE (16:46)
[2019-04-27] MEDS ORDERED: 0.9 % SODIUM CHLORIDE 0 ML IV ONE (16:48)
[2019-04-27] MEDS ORDERED: cefTRIAXone SODIUM 1 GM INJ ONE (16:48)
[2019-04-27] MEDS: IPRATROPIUM/ALBUTEROL SULFATE 3 ML AMPUL.NEB NEB SCH ×2 (17:10→21:47)
[2019-04-27] MEDS: POTASSIUM CHLORIDE 10 MEQ TABLET.ER PO SCH (17:17)
[2019-04-27] MEDS: AZITHROMYCIN 250 MG TABLET PO SCH (17:20)
[2019-04-27] MEDS: WARFARIN SODIUM 5 MG TABLET PO SCH (18:23)
[2019-04-27] MEDS ORDERED: METOPROLOL TARTRATE 50 MG TABLET PO SCH (21:00)
[2019-04-27] MEDS ORDERED: methylPREDNISolone SOD SUCC 40 MG/ML VIAL IVP SCH (21:00)
[2019-04-27] MEDS: ATORVASTATIN CALCIUM 20 MG TABLET PO SCH (21:44)
[2019-04-27] MEDS: ZOLPIDEM TARTRATE 5 MG TABLET PO SCH (21:44)
[2019-04-27] MEDS: FUROSEMIDE 20 MG/2 ML VIAL IVP SCH (21:45)
[2019-04-27] MEDS: methylPREDNISolone SOD SUCC 40 MG/ML VIAL IVP SCH (21:46)
[2019-04-27] MEDS: SODIUM CHLORIDE 0.9 % (FLUSH) 10 ML DISP.SYRIN IV SCH (21:47)
[2019-04-28] MEDS: IPRATROPIUM/ALBUTEROL SULFATE 3 ML AMPUL.NEB NEB SCH ×6 (02:10→23:31)
[2019-04-28] MEDS: PANTOPRAZOLE SODIUM 40 MG TABLET.DR PO SCH (06:28)
[2019-04-28 07:16] LABS: BASOPHILS % 0.8 % (0.0-1.5); NEUTROPHILS # 3.6 # k/uL (1.4-7.7)
[2019-04-28 07:48] LABS: eGFR (Non-African) > 60
--- NOTE | 2019-04-28 07:58 | Diagnostic Imaging Report ---
PATIENT MR#: [id number] PATIENT PATIENT NAME: SAUD FINCH DATE OF : 1935 REFERRING PHYSICIAN: Paulo Lagos EXAM DATE: 04/28/2019 ACCESSION NUMBER: [id number] EXAM DESCRIPTION: CHEST 2VIEW Chest, PA and lateral History: Pneumonia Findings: Small right pleural effusion is present. There is no pneumothorax. Interstitial markings ar e increased. Right lower lobe atelectasis is present. The heart is enlarged. Pulmonary vascularity is normal. There is c alcification in the thoracic aorta. Left subclavian transvenous pacemaker is present. Since April 27, 2019, no signifi cant change has occurred. Impression: Right pleural effusion with right lower lobe atelectasis. Cardiomegaly. Atherosclerosis. Read by: Dr. Samuel Ji Transcribed by: Transcribed Date: Electronically signed by: Dr. Samuel Ji Date signed: 04/28/2019 7:58:49 AM
[2019-04-28] MEDS ORDERED: methylPREDNISolone SOD SUCC 125 MG/2 ML VIAL ONE (10:07)
[2019-04-28] MEDS ORDERED: DEXAMETHASONE SODIUM PHOSPHATE 10 MG/ML VIAL ONE (10:08)
[2019-04-28] MEDS ORDERED: 0.9 % SODIUM CHLORIDE 50 ML IV ONE (10:09)
[2019-04-28] MEDS: POTASSIUM CHLORIDE 10 MEQ TABLET.ER PO SCH (10:34)
[2019-04-28] MEDS: AZITHROMYCIN 250 MG TABLET PO SCH (10:35)
[2019-04-28] MEDS: FUROSEMIDE 20 MG/2 ML VIAL IVP SCH ×2 (10:37→22:17)
[2019-04-28] MEDS: methylPREDNISolone SOD SUCC 40 MG/ML VIAL IVP SCH ×2 (10:40→22:14)
[2019-04-28] MEDS: SODIUM CHLORIDE 0.9 % (FLUSH) 10 ML DISP.SYRIN IV SCH ×2 (10:40→22:17)
[2019-04-28] MEDS: INSULIN REGULAR, HUMAN 100 UNIT/ML 10ML VIAL SQ SCH ×2 (12:40→17:36)
[2019-04-28] MEDS ORDERED: WARFARIN SODIUM 2.5 MG TABLET PO ONE (17:07)
[2019-04-28] MEDS: WARFARIN SODIUM 5 MG TABLET PO SCH (17:32)
[2019-04-28] MEDS: WARFARIN SODIUM 7.5 MG PO SCH (17:56)
[2019-04-28 18:19] VITALS: BMI 27.3
[2019-04-28] MEDS: ATORVASTATIN CALCIUM 20 MG TABLET PO SCH (22:18)
[2019-04-28] MEDS: ZOLPIDEM TARTRATE 5 MG TABLET PO SCH (22:18)
[2019-04-29] MEDS: IPRATROPIUM/ALBUTEROL SULFATE 3 ML AMPUL.NEB NEB SCH ×6 (01:55→20:21)
[2019-04-29] MEDS: PANTOPRAZOLE SODIUM 40 MG TABLET.DR PO SCH (06:03)
--- NOTE | 2019-04-29 07:21 | Diagnostic Imaging Report ---
PATIENT MR#: [id number] PATIENT PATIENT NAME: SAUD FINCH DATE OF : 1935 REFERRING PHYSICIAN: Paulo Lagos EXAM DATE: 04/29/2019 ACCESSION NUMBER: [id number] EXAM DESCRIPTION: CHEST 2VIEW HISTORY: 83-year-old female with pneumonia. COMPARISON: Chest x-ray dated 04/27/2019. TECHNIQUE: 2 views of the chest were performed. FINDINGS: Left chest pacemaker is re-identified. There is right basilar infiltrate and effusion, imp roved. There is a small left pleural effusion, stable. The lungs are hyperexpanded. Mild prominence of the interstiti al markings is stable. No pneumothorax. The heart is borderline enlarged. The aortic arch is calcific. IMPRESSION: 1. Improved right basilar infiltrate and effusion. 2. Stable small left pleural effusion. 3. Pulmonary hyperexpansion suggestive of emphysema. Read by: Dr. Jose Ji Transcribed by: Transcribed Date: Electronically signed by: Dr. Jose Ji Date signed: 04/29/2019 7:19:57 AM
[2019-04-29] MEDS ORDERED: 0.9 % SODIUM CHLORIDE 50 ML IV ONE ×2 (09:18→10:07)
[2019-04-29] MEDS ORDERED: cefTRIAXone SODIUM 1 GM INJ ONE (09:19)
[2019-04-29] MEDS: INSULIN REGULAR, HUMAN 100 UNIT/ML 10ML VIAL SQ SCH ×3 (09:20→16:41)
[2019-04-29] MEDS: AZITHROMYCIN 250 MG TABLET PO SCH (09:55)
[2019-04-29] MEDS: POTASSIUM CHLORIDE 10 MEQ TABLET.ER PO SCH (09:55)
[2019-04-29] MEDS: FUROSEMIDE 20 MG/2 ML VIAL IVP SCH ×2 (09:56→20:12)
[2019-04-29] MEDS: methylPREDNISolone SOD SUCC 40 MG/ML VIAL IVP SCH ×2 (09:57→20:08)
[2019-04-29] MEDS: SODIUM CHLORIDE 0.9 % (FLUSH) 10 ML DISP.SYRIN IV SCH ×2 (09:58→20:21)
[2019-04-29] MEDS ORDERED: WARFARIN SODIUM 2.5 MG TABLET PO ONE (15:17)
[2019-04-29] MEDS: METOPROLOL TARTRATE 50 MG TABLET PO SCH (17:56)
[2019-04-29] MEDS: WARFARIN SODIUM 7.5 MG PO SCH (17:57)
[2019-04-29] MEDS: ATORVASTATIN CALCIUM 20 MG TABLET PO SCH (20:04)
[2019-04-29] MEDS: ZOLPIDEM TARTRATE 5 MG TABLET PO SCH (20:04)
[2019-04-30] MEDS: IPRATROPIUM/ALBUTEROL SULFATE 3 ML AMPUL.NEB NEB SCH ×4 (01:25→12:51)
[2019-04-30] MEDS ORDERED: METOPROLOL TARTRATE 50 MG TABLET PO ONE (03:00)
[2019-04-30] MEDS: PANTOPRAZOLE SODIUM 40 MG TABLET.DR PO SCH (05:07)
--- NOTE | 2019-04-30 08:01 | Discharge Summary ---
Discharge Summary - Discharge [facility] Admission Date: 04/27/19 (acute) Discharge Date: 04/30/19 (home) Discharge To: Home History of Present Illness: 83-year-old female with a 3 day history of increasing shortness of breath. Has been coughing some that has been productive, no blood noted. No chest pain or pressure noted. patient denies any fever or chills. Patient stated she has been having some intermittent wheezing. Patient subsequently came to the ED for evaluation. In the emergency room patient was noted to have a pulse ox of 85% on room air. Patient denied any chest pain or chest pressure. Chest x-ray was done and was consistent with a possible early pneumonia. Patient was subsequently admitted to the hospital for further care and evaluation. Patient was hospitalized for CHF on APR 13. Patient has been reported to have seen her primary care physician and was in the middle of further evaluation. Condition at Discharge: Stable Home Medications: Ambulatory Orders Medication Instructions Recorded Fluticasone/Umeclidin/Vilanter BID 04/10/19 [Trelegy Ellipta 100-62.5-25] Metoprolol Tartrate [Lopressor] 50 mg pe PO BID 04/10/19 Omeprazole 20 mg PO QDAY 04/10/19 Potassium Chloride 10 meq PO QDAY 04/10/19 Pravastatin Sodium [Pravachol] 40 mg PO QDAY 04/10/19 Warfarin Sodium [Coumadin] 7.5 mg PO [id number] 04/10/19 Warfarin Sodium [Coumadin] 10 mg PO M1800 04/10/19 Zolpidem Tartrate [Ambien] 5 mg PO HS 04/10/19 dilTIAZem HCL [Cardizem CD] 360 mg PO DAILY #60 cap.er.24h 04/11/19 Azithromycin 250 mg PO DAILY #3 tablet 04/30/19 Cefdinir [Omnicef] 300 mg PO BID #14 capsule 04/30/19 Digoxin [Lanoxin] 125 mcg PO [id number] #30 tablet 04/30/19 Furosemide 40 mg PO QDAY #180 tab 04/30/19 Methylprednisolone [Medrol] 4 mg PO DIRECTED #1 tab.ds.pk 04/30/19 Consultations this Visit: None Procedures this Visit: None Allergies/Adverse Reactions: Allergies Allergy/AdvReac Type Severity Reaction Status Date / Time No Known Allergies Allergy Verified 04/27/19 13:58 Discharge Summary: Patient was felt to have a pneumonia. Blood cultures done and did not grow any pathologic organism. Patient was started on Ceftriaxone and azithromycin. Breathing did improve. Chest x-ray at time of dismiissal was improved. Breathing did improve ant at the time of dismissal was on RA. patient did have some A fib with rapid ventricular response. Patient was started on digoxin to help with the tachycrdia. Patient was continued on warfarin. At the time of dismissal inR was elevated and patient advised to hold coumadin for 2 days then have INR rechecked. patient's other medical probelms remained stable. - Final Diagnosis (1) Pneumonia Problems: improve (2) CHF (congestive heart failure) Problems: stable (3) Atrial fibrillation Problems: rapid ventricular response, started on digoxin continue Warfarin (4) COPD (chronic obstructive pulmonary disease) Problems: stble (5) Dementia Problems: stable
--- NOTE | 2019-04-30 08:02 | Inpatient Progress Note ---
Subjective - Required Recertification Statement I anticipate X number of days because-include discharge plan: 2 days - Review of Systems Events since last encounter: Patient seems to be doing better. States that her breathing is better at this time. No chest pain or pressure noted. No orthopnic episodes noted. Objective - Exam Vitals and I&O: Vital Signs Temp 98.5 F 04/30/19 06:00 Pulse 103 H 04/30/19 06:00 Resp 20 04/30/19 06:00 BP 156/86 04/30/19 06:00 Pulse Ox 92 04/30/19 06:00 Intake & Output 04/29/19 04/29/19 04/30/19 11:59 23:59 11:59 Intake Total 270 734 220 Balance 270 734 220 Weight 83.915 kg 78.471 kg Intake: IV 30 14 Right Forearm 30 14 Oral 240 720 220 Other: Voiding Method Toilet Toilet Toilet # Voids 4 3 # Bowel Movements 0 General: Alert (mild confusion), Oriented to Person, Oriented to Place, Oriented to Time, Cooperative Neck: Supple, No JVD Lungs: Speaks full Sentences, Rales (few scattered) Cardiovascular: Normal S1, Normal S2, Irregularly Irregular Abdomen: Normal bowel sounds, Soft, No tenderness Psych/Mental Status: Mental status NL (at baseline) - Results Results: Laboratory Results WBC 4.20 K/ul (4.00-12.00) 04/28/19 06:30 RBC 3.85 M/ul (3.90-5.20) L 04/28/19 06:30 Hgb 11.9 g/dL (11.5-16.0) 04/28/19 06:30 Hct 34.0 % (34.5-46.5) L 04/28/19 06:30 MCV 88.0 fl (80.0-100.0) 04/28/19 06:30 MCH 30.9 pg (28.0-34.0) 04/28/19 06:30 MCHC 35.0 g/dL (30.0-36.0) 04/28/19 06:30 RDW 13.0 % (11.3-14.3) 04/28/19 06:30 Plt Count 221 K/mm3 (130-400) 04/28/19 06:30 Neut % (Auto) 87.1 % (39.0-79.0) H 04/28/19 06:30 Lymph % (Auto) 10.2 % (16.0-50.0) L 04/28/19 06:30 [place] % (Auto) 0.8 % (0.0-11.0) 04/28/19 06:30 Eos % (Auto) 1.1 % (0.0-6.8) 04/28/19 06:30 Baso % (Auto) 0.8 % (0.0-1.5) 04/28/19 06:30 Neut # (Auto) 3.6 # k/uL (1.4-7.7) 04/28/19 06:30 Lymph # (Auto) 0.4 # k/uL (0.6-4.0) L 04/28/19 06:30 [place] # (Auto) 0.0 # k/uL (0.0-0.9) 04/28/19 06:30 Eos # (Auto) 0.1 # k/uL (0.0-0.6) 04/28/19 06:30 Baso # (Auto) 0.0 # k/uL (0.0-0.5) 04/28/19 06:30 PT 18.8 Seconds (8.8-11.9) H 04/28/19 06:30 INR 1.82 (0.80-1.10) H 04/28/19 06:30 Sodium 139 mmol/L (137-145) 04/28/19 06:30 Potassium 3.7 mmol/L (3.5-5.1) 04/28/19 06:30 Chloride 102 mmol/L (98-107) 04/28/19 06:30 Carbon Dioxide 25 mmol/L (22-30) 04/28/19 06:30 Anion Gap 15.7 04/28/19 06:30 BUN 14 mg/dL (7-17) 04/28/19 06:30 Creatinine 0.66 mg/dL (0.52-1.04) 04/28/19 06:30 Estimated Creat Clear 97 04/28/19 06:30 Est GFR ( Amer) > 60 (60-) 04/28/19 06:30 Est GFR (Non-Af Amer) > 60 (60-) 04/28/19 06:30 Glucose 180 mg/dL (74-106) H 04/28/19 06:30 Calcium 9.0 mg/dL (8.4-10.2) 04/28/19 06:30 Total Bilirubin 1.0 mg/dL (0.2-1.3) 04/28/19 06:30 AST 31 U/L (15-46) 04/28/19 06:30 ALT 16 U/L (4-35) 04/28/19 06:30 Alkaline Phosphatase 95 U/L (38-126) 04/28/19 06:30 Troponin I < 0.012 ng/mL (0.012-0.034) L 04/27/19 13:51 NT-Pro-B Natriuret Pep 5069.4 pg/mL (15.0-450.0) H 04/29/19 07:30 Total Protein 7.1 g/dL (6.3-8.2) 04/28/19 06:30 Albumin 4.1 g/dL (3.5-5.0) 04/28/19 06:30 Assessment/Plan - Assessment/Plan (1) Pneumonia Status: Acute Current Visit: Yes Qualifiers: Pneumonia type: due to unspecified organism Laterality: right Lung location: lower lobe of lung Qualified Code(s): J18.9 - Pneumonia, unspecified organism Assessment: improved (2) CHF (congestive heart failure) Status: Acute Current Visit: No Qualifiers: Heart failure type: systolic Assessment: stable (3) Atrial fibrillation Status: Chronic Current Visit: No Qualifiers: Atrial fibrillation type: longstanding persistent Qualified Code(s): I48.11 - Longstanding persistent atrial fibrillation Assessment: stable (4) COPD (chronic obstructive pulmonary disease) Status: Chronic Current Visit: No (5) Dementia Status: Chronic Current Visit: No Qualifiers: Alzheimer's disease onset: late-onset Dementia behavioral disturbance: without behavioral disturbance Assessment: stable
--- NOTE | 2019-04-30 08:02 | Inpatient Progress Note ---
Subjective - Required Recertification Statement I anticipate X number of days because-include discharge plan: 1 day - Review of Systems Events since last encounter: Patient states that she is feeling some better. Breathing is better. Still has a mild cough. Gets SOB with exertion but is doing better. Objective - Exam Vitals and I&O: Vital Signs Temp 98.5 F 04/30/19 06:00 Pulse 103 H 04/30/19 06:00 Resp 20 04/30/19 06:00 BP 156/86 04/30/19 06:00 Pulse Ox 92 04/30/19 06:00 Intake & Output 04/29/19 04/29/19 04/30/19 11:59 23:59 11:59 Intake Total 270 734 220 Balance 270 734 220 Weight 83.915 kg 78.471 kg Intake: IV 30 14 Right Forearm 30 14 Oral 240 720 220 Other: Voiding Method Toilet Toilet Toilet # Voids 4 3 # Bowel Movements 0 General: Alert, Oriented to Person, Oriented to Place, Oriented to Time, Cooperative Neck: Supple, No JVD, No thyromegaly Lungs: Normal air movement, Rales (few) Cardiovascular: Regular rate, Normal S1, Normal S2, No murmurs Abdomen: Normal bowel sounds, Soft, No tenderness, No hepatospenomegaly, No masses - Results Results: Laboratory Results WBC 4.20 K/ul (4.00-12.00) 04/28/19 06:30 RBC 3.85 M/ul (3.90-5.20) L 04/28/19 06:30 Hgb 11.9 g/dL (11.5-16.0) 04/28/19 06:30 Hct 34.0 % (34.5-46.5) L 04/28/19 06:30 MCV 88.0 fl (80.0-100.0) 04/28/19 06:30 MCH 30.9 pg (28.0-34.0) 04/28/19 06:30 MCHC 35.0 g/dL (30.0-36.0) 04/28/19 06:30 RDW 13.0 % (11.3-14.3) 04/28/19 06:30 Plt Count 221 K/mm3 (130-400) 04/28/19 06:30 Neut % (Auto) 87.1 % (39.0-79.0) H 04/28/19 06:30 Lymph % (Auto) 10.2 % (16.0-50.0) L 04/28/19 06:30 [place] % (Auto) 0.8 % (0.0-11.0) 04/28/19 06:30 Eos % (Auto) 1.1 % (0.0-6.8) 04/28/19 06:30 Baso % (Auto) 0.8 % (0.0-1.5) 04/28/19 06:30 Neut # (Auto) 3.6 # k/uL (1.4-7.7) 04/28/19 06:30 Lymph # (Auto) 0.4 # k/uL (0.6-4.0) L 04/28/19 06:30 [place] # (Auto) 0.0 # k/uL (0.0-0.9) 04/28/19 06:30 Eos # (Auto) 0.1 # k/uL (0.0-0.6) 04/28/19 06:30 Baso # (Auto) 0.0 # k/uL (0.0-0.5) 04/28/19 06:30 PT 18.8 Seconds (8.8-11.9) H 04/28/19 06:30 INR 1.82 (0.80-1.10) H 04/28/19 06:30 Sodium 139 mmol/L (137-145) 04/28/19 06:30 Potassium 3.7 mmol/L (3.5-5.1) 04/28/19 06:30 Chloride 102 mmol/L (98-107) 04/28/19 06:30 Carbon Dioxide 25 mmol/L (22-30) 04/28/19 06:30 Anion Gap 15.7 04/28/19 06:30 BUN 14 mg/dL (7-17) 04/28/19 06:30 Creatinine 0.66 mg/dL (0.52-1.04) 04/28/19 06:30 Estimated Creat Clear 97 04/28/19 06:30 Est GFR ( Amer) > 60 (60-) 04/28/19 06:30 Est GFR (Non-Af Amer) > 60 (60-) 04/28/19 06:30 Glucose 180 mg/dL (74-106) H 04/28/19 06:30 Calcium 9.0 mg/dL (8.4-10.2) 04/28/19 06:30 Total Bilirubin 1.0 mg/dL (0.2-1.3) 04/28/19 06:30 AST 31 U/L (15-46) 04/28/19 06:30 ALT 16 U/L (4-35) 04/28/19 06:30 Alkaline Phosphatase 95 U/L (38-126) 04/28/19 06:30 Troponin I < 0.012 ng/mL (0.012-0.034) L 04/27/19 13:51 NT-Pro-B Natriuret Pep 5069.4 pg/mL (15.0-450.0) H 04/29/19 07:30 Total Protein 7.1 g/dL (6.3-8.2) 04/28/19 06:30 Albumin 4.1 g/dL (3.5-5.0) 04/28/19 06:30 Assessment/Plan - Assessment/Plan (1) Pneumonia Status: Acute Qualifiers: Pneumonia type: due to unspecified organism Laterality: right Lung location: lower lobe of lung Qualified Code(s): J18.9 - Pneumonia, unspecified organism Assessment: breathing is improved (2) CHF (congestive heart failure) Status: Acute Qualifiers: Heart failure type: systolic Assessment: stable (3) Atrial fibrillation Status: Chronic Qualifiers: Atrial fibrillation type: longstanding persistent Qualified Code(s): I48.11 - Longstanding persistent atrial fibrillation Assessment: stable (4) COPD (chronic obstructive pulmonary disease) Status: Chronic Assessment: stable (5) Dementia Status: Chronic Qualifiers: Alzheimer's disease onset: late-onset Dementia behavioral disturbance: without behavioral disturbance Assessment: stable
[2019-04-30] MEDS: POTASSIUM CHLORIDE 10 MEQ TABLET.ER PO SCH (08:23)
[2019-04-30] MEDS: methylPREDNISolone SOD SUCC 40 MG/ML VIAL IVP SCH (08:24)
[2019-04-30] MEDS: FUROSEMIDE 20 MG/2 ML VIAL IVP SCH (08:24)
[2019-04-30] MEDS: SODIUM CHLORIDE 0.9 % (FLUSH) 10 ML DISP.SYRIN IV SCH (08:54)
[2019-04-30] MEDS: INSULIN REGULAR, HUMAN 100 UNIT/ML 10ML VIAL SQ SCH ×2 (08:55→12:49)
[2019-04-30] MEDS: METOPROLOL TARTRATE 50 MG TABLET PO SCH (08:56)
[2019-04-30] MEDS ORDERED: METOPROLOL TARTRATE 50 MG TABLET PO SCH (09:00)
[2019-04-30 09:21] LABS: eGFR (Non-African) > 60
[2019-04-30] MEDS ORDERED: DIGOXIN 125 MCG TABLET PO SCH (12:00)
[2019-04-30 14:04] VITALS: BP 129/71
[2019-04-30] MEDS ORDERED: WARFARIN SODIUM 2.5 MG TABLET PO SCH (18:00)
--- NOTE | 2019-05-01 13:05 | Diagnostic Imaging Report ---
[facility] [id number] [facility] [id number] Patient Name: SAUD FINCH Referring Physician: Paulo Lagos Date of : 1935 Gender: F Date of Service: 04/30/2019 Exam Requested: CHEST 2VIEW CHEST XRAY HISTORY: Pneumonia. FINDINGS: PA and lateral chest x-ray demonstrates further improvement in the right lower lobe infiltrate and/or atelectasis with decrease in the right pleural effusion since the prior study of April 29, 2019. Stable small left pleural effusion remains. The lungs are otherwise clear. Cardiomegaly is seen with pacemaker in place unchanged. Bones of the region are unchanged as well. IMPRESSION: Further improvement in aeration in the right lower lobe with residual bilateral pleural effusions. O
== END 2019-04-30 14:10 | disposition home or self-care (01) | DRG 194 ==
LOC: ED 13:13 → SOUTH 14:55
PROVIDERS: ADMIT Family Medicine; ATTEND Family Medicine
DX: J18.9 Pneumonia, unspecified organism (principal); I48.11 Longstanding persistent atrial fibrillation; I50.22 Chronic systolic (congestive) heart failure; J44.0 Chronic obstructive pulmonary disease with (acute) lower respiratory infection; G30.1 Alzheimer's disease with late onset; F02.80 Dementia in other diseases classified elsewhere, unspecified severity, without behavioral disturbance, psychotic disturbance, mood disturbance, and anxiety; Z79.899 Other long term (current) drug therapy; Z79.01 Long term (current) use of anticoagulants; Z79.51 Long term (current) use of inhaled steroids; Z90.49 Acquired absence of other specified parts of digestive tract; Z95.0 Presence of cardiac pacemaker; Z87.891 Personal history of nicotine dependence
CPT/HCPCS: 36415; 71045; 71046; 80053; 83880; 84484; 85025; 85610; 87040; 93005; 94640; 94760; J0456; J0696; J1030; J1815; J1940; J2930; 99221; 99232; 99238; J2920; J7050; S1016